=== PATIENT | female | born 1990 | race Two or more races ===

== ENCOUNTER 2021-11-08 12:17 | Outpatient (REF) | payer MEDICAID, SELFPAY ==
[2021-11-08 13:15] LABS: Alanine Aminotransferase 21 U/L (0-31); Albumin Level 4.5 g/dL (3.5-5.0); Alkaline Phosphatase 83 U/L (39-117); Aspartate Amino Transferase 18 U/L (5-31); Bilirubin Direct 0.2 mg/dL (0.0-0.5); Bilirubin Total 0.5 mg/dL (0.0-1.0); Total Protein 7.2 g/dL (6.5-8.0)
[2021-11-08 13:21] LABS: HCG Quantitative < 2 mIU/mL
[2021-11-10 01:21] LABS: Follicle Stimulating Hormone 6.3 mIU/mL; Lutenizing Hormone 2.7 mIU/mL
[2021-11-15 04:16] LABS: Estradiol Free 0.24 pg/mL; Estradiol, Ultrasensitive 12 pg/mL
== END 2021-11-08 12:18 | disposition home or self-care (01) ==
LOC: HO.LAB 12:17
PROVIDERS: PCP Student in an Organized Health Care Education/Training Program; Visit Provider Internal Medicine Endocrinology, Diabetes & Metabolism
DX: E22.1 Hyperprolactinemia (principal)
CPT/HCPCS: 36415; 80076; 82670; 82681; 83001; 83002; 84702

== ENCOUNTER 2022-03-25 15:50 | Outpatient (REF) | payer MEDICAID, SELFPAY ==
[2022-03-25 16:49] LABS: Alanine Aminotransferase 29 U/L (0-31); Albumin Level 4.6 g/dL (3.5-5.0); Alkaline Phosphatase 90 U/L (39-117); Aspartate Amino Transferase 22 U/L (5-31); Bilirubin Direct < 0.2 mg/dL (0.0-0.5); Bilirubin Total 0.3 mg/dL (0.0-1.0); Total Protein 7.4 g/dL (6.5-8.0)
[2022-03-27 07:23] LABS: Prolactin 94.8 ng/mL
== END 2022-03-25 15:51 | disposition home or self-care (01) ==
LOC: HO.LAB 15:50
PROVIDERS: PCP Student in an Organized Health Care Education/Training Program; Visit Provider Internal Medicine Endocrinology, Diabetes & Metabolism
DX: E22.1 Hyperprolactinemia (principal)
CPT/HCPCS: 36415; 80076; 84146

== ENCOUNTER → 2022-03-28 11:30 | Outpatient (BNVA) | payer MEDICAID, SELFPAY | PROVIDERS: PCP Student in an Organized Health Care Education/Training Program; Visit Provider Internal Medicine Endocrinology, Diabetes & Metabolism | DX: E22.1 Hyperprolactinemia (principal) | CPT/HCPCS: 99212 ==

== ENCOUNTER 2022-08-13 10:14 | Outpatient (REF) | payer MEDICAID, SELFPAY | END 2022-08-13 10:15 | disposition home or self-care (01) | LOC: HO.SH 10:14 | PROVIDERS: Visit Provider Family Medicine | DX: H93.12 Tinnitus, left ear (principal) | CPT/HCPCS: 92557; 92567 ==

== ENCOUNTER 2022-12-19 12:20 | Outpatient (REF) | payer MEDICAID, SELFPAY ==
[2022-12-19 14:39] LABS: Alanine Aminotransferase 13 U/L (0-31); Albumin Level 4.3 g/dL (3.5-5.0); Alkaline Phosphatase 75 U/L (39-117); Aspartate Amino Transferase 15 U/L (5-31); Bilirubin Direct 0.1 mg/dL (0.0-0.5); Bilirubin Total 0.4 mg/dL (0.0-1.0); Total Protein 7.2 g/dL (6.5-8.0)
[2022-12-20 12:32] LABS: Prolactin 57.4 ng/mL
== END 2022-12-19 12:21 | disposition home or self-care (01) ==
LOC: HO.LAB 12:20
PROVIDERS: PCP Student in an Organized Health Care Education/Training Program; Visit Provider Internal Medicine Endocrinology, Diabetes & Metabolism
DX: E22.1 Hyperprolactinemia (principal)
CPT/HCPCS: 36415; 80076; 84146

== ENCOUNTER 2023-08-11 16:06 | Outpatient (REF) | payer MEDICAID, SELFPAY ==
[2023-08-11 17:31] LABS: MANUAL DIFF FLAG NO
[2023-08-11 17:46] LABS: Basophils Percent Auto 0.5 % (0-2); Eosinophils Absolute Auto 0.1 X10*3/uL (0.0-0.4); Eosinophils Percent Auto 2.3 % (0-4); Hematocrit 29.3 % (37.0-47.0); Hemoglobin 9.6 g/dl (12.0-16.0); Imm Gran Abs Auto 0.02 X10*3/uL (0.00-0.03); Imm Gran Pct Auto 0.3 % (0.0-0.4); Lymphocytes Absolute Auto 2.3 X10*3/uL (1.2-4.9); Lymphocytes Percent Auto 38.2 % (20-40); Mean Corpuscular HGB Conc 32.8 g/dl (31.0-35.0); Mean Corpuscular Hemoglobin 26.8 pg (27.0-33.0); Mean Corpuscular Volume 81.8 fL (80.0-98.0); Mean Platelet Volume 10.9 fL (9.4-12.3); Monocytes Absolute Auto 0.3 X10*3/uL (0.1-1.2); Monocytes Percent Auto 5.5 % (2-11); Neutrophils Absolute Auto 3.2 x10*3/uL (2.0-8.3); Neutrophils Percent Auto 53.2 % (45-73); Platelet Count 281 X10*3/uL (160-400); Red Blood Count 3.58 X10*6/uL (4.20-5.50); Red Cell Distribution Width 14.7 % (11.0-16.0)
[2023-08-11 18:16] LABS: Iron 32 mcg/dL (30-160); Percent Iron Saturation 9 % (15-50); Total Iron Binding Capacity 351 mcg/dL (228-428); Unsaturated Iron Binding 319 ug/dL
[2023-08-11 18:18] LABS: Ferritin 5 ng/mL (10-122)
== END 2023-08-11 16:07 | disposition home or self-care (01) ==
LOC: HO.CHCLDS 16:06
PROVIDERS: Visit Provider Registered Nurse
DX: R42 Dizziness and giddiness (principal)
CPT/HCPCS: 36415; 82728; 83540; 85025

== ENCOUNTER 2024-05-23 16:26 | Outpatient (REF) | payer MEDICAID, SELFPAY ==
[2024-05-23 17:48] LABS: MANUAL DIFF FLAG NO
[2024-05-23 17:59] LABS: Basophils Absolute Auto 0.1 X10*3/uL (0.0-0.2); Basophils Percent Auto 0.6 % (0-2); Eosinophils Absolute Auto 0.2 X10*3/uL (0.0-0.4); Hematocrit 29.6 % (37.0-47.0); Hemoglobin 9.1 g/dl (12.0-16.0); Imm Gran Abs Auto 0.06 X10*3/uL (0.00-0.03); Imm Gran Pct Auto 0.7 % (0.0-0.4); Lymphocytes Absolute Auto 2.9 X10*3/uL (1.2-4.9); Mean Corpuscular HGB Conc 30.7 g/dl (31.0-35.0); Mean Corpuscular Hemoglobin 22.6 pg (27.0-33.0); Mean Corpuscular Volume 73.4 fL (80.0-98.0); Mean Platelet Volume 10.5 fL (9.4-12.3); Monocytes Absolute Auto 0.6 X10*3/uL (0.1-1.2); Monocytes Percent Auto 6.7 % (2-11); Neutrophils Absolute Auto 5.3 x10*3/uL (2.0-8.3); Platelet Count 362 X10*3/uL (160-400); Red Blood Count 4.03 X10*6/uL (4.20-5.50); Red Cell Distribution Width 17.2 % (11.0-16.0); White Blood Count 9.1 X10*3/uL (4.8-10.8)
[2024-05-23 18:21] LABS: Iron 20 mcg/dL (30-160); Percent Iron Saturation 5 % (15-50); Total Iron Binding Capacity 379 mcg/dL (228-428); Unsaturated Iron Binding 359 ug/dL
--- OUTSIDE RECORDS SUMMARY | 2024-05-23 19:52 | XMS_ITS | Clinical Summary ---
Author Organization [employer] Address [address] [facility] 7[address] [place] [address] Care Team Providers Care Paleontology Teacher Name Role Phone Harper Chaudhari MD Primary Care Provider [phone] Allergies No known active allergies Medications cyclobenzaprine (Flexeril) 5 MG tablet Take 1 tablet by mouth. 1 Active multivitamin with minerals (Cerovite) 18-400 mg-mcg tablet tablet Take by mouth. 0 Active triamcinolone (Kenalog) 0.1 % creamIndications:P aronychia of finger of right hand Apply topically if needed in the morning and at bedtime (pain and swelling). 30 g 2 2 Active SUMAtriptan (Imitrex) 100 MG tabletIndications: Acute nonintractable headache, unspecified headache type Take 1 tablet at onset of headache. Repeat in 2 hours if headache still present. Do not take more than 2 tablets daily 9 tablet 3 Active meclizine (Antivert) 25 MG tablet 1 tab po BID 60 tablet 3 3 Active Dextromethorphan-g uaiFENesin (Mucinex DM) 30-600 MG tablet sustained-release 12 hour Use 1 tab TID 28 tablet 4 Active ferrous gluconate (Fergon) 324 (38 Fe) MG tablet TAKE 1 TABLET BY MOUTH EVERY THURSDAY, THURSDAY AND THURSDAY. TAKE WITH A FULL GLASS OF WATER OR VITAMIN C CONTAINING JUICE AND IDEALLY 1 HOUR BEFORE A MEAL OR 2 HOURS AFTER A MEAL 36 tablet 4 Active sodium chloride (Levy) 0.65 % nasal sprayIndications:N ángel congestion Administer 1 spray into each nostril if needed for congestion. 15 mL 1 5 026 Active Active Problems Problem Noted Date Diagnosed Date Pulsatile tinnitus of left ear 05/23/2024 Acute nonintractable headache 03/16/2023 Assessment & Plan (03/16/2023 4:45 PM EST): -possibly migraine -Imitrex rx sent to pharmacy -take ibuprofen with imitrex -monitor for worsening symptoms and call the clinic if no improvement -f/u 2 weeks Tinnitus aurium, left 05/19/2022 Assessment & Plan (05/19/2022 4:24 PM EST): Left ear tinnitus, will send iron studies, reviewed recent TSH. Will send to audiology & ENT, recommended f/u with PCP Impacted cerumen of right ear 05/19/2022 Assessment & Plan (03/16/2023 4:46 PM EST): -severely impacted; TM not visible -previously tried debrox gtts not successful -lavage completed today after which TM was visible Assessment & Plan (05/19/2022 4:27 PM EST): Will send debrox gtt and will setup for nursing visit for lavage. Disorder of pelvis 05/07/2022 Lymphadenopathy, cervical 05/07/2022 Assessment & Plan (05/07/2022 11:00 AM EST): Likely LN, recent viral illness, but will send for US and send labs. Will followup. No B symptoms Change in facial mole 05/07/2022 Assessment & Plan (05/07/2022 10:58 AM EST): Normal appearance upon examination but will refer to dermatology for further examination. Paronychia of finger of right hand 04/03/2022 Assessment & Plan (04/03/2022 10:52 AM EST): Avoid washing dishes without gloves. Topical steroid cream application bid and short course of oral steroids also given, avoid manicure for a while. Wart of hand 04/03/2022 Overview (04/03/2022): Liquid nitrogen applied. No complications.[place]erral [place] [facility] [place] it is interfering with her job. Encounters Date Type Department Care Team Description 05/23/2024 3:40 PM EST Office Visit [facility] [address] [place] [address] Carly Capone MD Nasal congestion (Primary Dx); Iron deficiency anemia due to chronic blood loss; Pulsatile tinnitus of left ear 05/23/2024 Travel 05/23/2024 Telephone [facility] [address] [place] [address] Harper Chaudhari MD Nurse Triage 05/10/2024 Telephone [facility] [address] [place], [place] [phone] Harper Chaudhari MD Nurse Triage 03/11/2024 Refill [facility] [address] [place] [address] Harper Chaudhari MD from Last 3 Months Social History Tobacco Use Types Packs/Day Years Used Date Smoking Tobacco: Never Passive Smoke Exposure: Never Smokeless Tobacco: Never Tobacco Cessation:Counseling Given: Not Answered Alcohol Use Standard Drinks/Week Comments Never 0 (1 standard drink = 0.6 oz pur e alcohol) Depression Answer Date Recorded Patient Health Questionnaire-9 Score 2 02/19/2024 Patient Health Questionnaire-9 Score 2 02/19/2024 Last PHQ-9: Questionnaire Data Not on file 1 Housing Stability Answer Date Recorded What is your housing situation today? I have bhupinder marley 02/11/[address] you li ve. Do you have problems with any of the following? None of the above 02/11/2023 Food Insecurity Answer Date Recorded Within the past 12 months, y ou worried that your food would run out before you got money to buy more: Never True 02/11/2023 Within the past 12 months,th e food you bought just didn't last and you didn't have enough money to get more: Never True Transportation Answer Date Recorded In the past 12 months, has l ack of transportation kept you from medical appts, meetings, work or from getting things needed for daily living? No 02/11/2023 Utilities Answer Date Recorded In the past 12 months, has t he electric, gas, oil or water company threatened to shut off services in your home? No 02/11/2023 Depression Answer Date Recorded Patient Health Questionnaire-2 Score 1 02/19/2024 Comments No Sex and Gender Information Value Date Recorded Sex Assigned at Female 02/24/2022 10:19 AM EDT Legal Sex Female 10:19 AM EDT Gender Identity Female 02/24/2022 10:19 AM EDT Sexual Orientation Straight 02/24/2022 10 :19 AM EDT Last Filed Vital Signs Vital Sign Reading Time Taken Comments Blood Pressure 108/75 05/23/2024 3:49 PM EST Pulse 85 05/23/2024 3:49 PM EST Temperature 36.5 ??C (97.7 ??F) 05/23/2024 3:49 PM ES T Respiratory Rate 20 05/23/2024 3:49 PM EST Oxygen Saturation 100% 05/23/2024 3:49 PM EST Inhaled Oxygen Concentration - - Weight 55.8 kg (123 lb) 05/23/2024 3:49 PM EST Height 148 cm (4' 10.25 ) 05/23/2024 3:49 PM EST Body Mass Index 25.49 05/23/2024 3:49 PM EST Plan of Treatment Health Maintenance Due Date Last Done Comments Family Planning (PISQ) 2005 DTaP/Tdap/Td Vaccines (1 - Tdap) 2009 Hepatitis B Vaccines (1 of 3 - 19+ 3-dose series) 2009 Pap Smear 2011 Cervical Cancer Screening 01/12/2020 HPV/Cotest 01/12/2020 SDOH Screening 09/26/2023 09/25/2022 COVID-19 Vaccine (1 - 2023-2 5 season) 2023 Influenza Vaccine (#1) 2023 Tobacco Screening 11/02/2024 11/03/2023 Alcohol/Substance Use Screening 02/18/2025 02/19/2024 Depression Screening 02/18/2025 02/19/2024, 02/19/2024 Zoster Vaccines (1 of 2) 01/12/2040 RSV Patients and Patients Aged 60 years or older (1 - 1-dose 75+ series) 2065 HIV Screening Completed 06/03/2019 Hepatitis C Screening Completed 06/03/2019 HIB Vaccines Aged Out No longer eligi ble based on patient's age to complete this topic HPV Vaccines Aged Out No longer eligi ble based on patient's age to complete this topic Hepatitis A Vaccines Aged Out No long er eligible based on patient's age to complete this topic IPV Vaccines Aged Out No longer eligi ble based on patient's age to complete this topic Meningococcal Vaccine Aged Out No mi cathy eligible based on patient's age to complete this topic Pneumococcal Vaccine: Pediatrics (0 to 5 Years) and At-Risk Patients (6 to 64 Years) Aged Out No longer eligible b ased on patient's age to complete this topic RSV under 20 months Aged Out No longe r eligible based on patient's age to complete this topic Rotavirus Vaccines Aged Out No longer eligible based on patient's age to complete this topic Procedures Procedure Name Priority Date/Time Associated Diagnosis Comments CBC WITH AUTO DIFFERENTIAL Routine 05/23/2024 4:28 PM EST Other iron deficiency anemia IRON AND TOTAL IRON BINDING CAPACITY Routine 05/23/2024 4:25 PM EST Other iron deficiency anemia ZZZ HISTORICAL HEPATITIS C ANTIBODY RFLX Routine 06/03/2019 10:01 AM EST ZZZ HISTORICAL HIV AB/AG Routine 06/03/2019 10:01 AM EST from Last 3 Months or Most Recently Relevant to Health Maintenance Results * (ABNORMAL) CBC auto differential (05/23/2024 4:28 PM EST) White Blood Count 9.1 4.8 - 10.8 X10*3/uL [facility] Red Blood Count 4.03(L) 4.20 - 5.50 X10*6/uL [facility] Hemoglobin 9.1(L) 12.0 - 16.0 g/dl [facility] Hematocrit 29.6(L) 37.0 - 47.0 % [facility] Mean Corpuscular Volume 73.4(L) 80.0 - 98.0 fL [facility] Mean Corpuscular Hemoglobin 22.6(L) 27.0 - 33.0 pg [facility] Mean Corpuscular HGB Conc 30.7(L) 31.0 - 35.0 g/dl [facility] Red Cell Distribution Width 17.2(H) 11.0 - 16.0 % [facility] Platelet Count 362 160 - 400 X10*3/uL [facility] Mean Platelet Volume 10.5 9.4 - 12.3 fL [facility] Neutrophils Percent Auto 58.0 45 - 73 % [facility] Imm Gran Pct Auto 0.7(H) 0.0 - 0.4 % [facility] Lymphocytes Percent Auto 32.0 20 - 40 % [facility] Monocytes Percent Auto 6.7 2 - 11 % [facility] Eosinophils Percent Auto 2.0 0 - 4 % [facility] Basophils Percent Auto 0.6 0 - 2 % [facility] NRBC Pct Auto 0.0 0.0 - 0.2 /100WBC [facility] Neutrophils Absolute Auto 5.3 2.0 - 8.3 x10*3/uL [facility] Imm Gran Abs Auto 0.06(H) 0.00 - 0.03 X10*3/uL [facility] Lymphocytes Absolute Auto 2.9 1.2 - 4.9 X10*3/uL [facility] Monocytes Absolute Auto 0.6 0.1 - 1.2 X10*3/uL [facility] Eosinophils Absolute Auto 0.2 0.0 - 0.4 X10*3/uL [facility] Basophils Absolute Auto 0.1 0.0 - 0.2 X10*3/uL [facility] NRBC Abs Auto 0.000 0.0 - 0.012 X10*3/uL [facility] Blood Venous blood specimen / Unknown 05/23/2024 4:28 PM EST 05/23/2024 5:46 PM EST us Carlos Denny MD LAB BLOOD ORDERABL ES Final Result Performing Organization Address [facility] de Phone Number [facility] [address] [place] [address] [phone] * (ABNORMAL) Iron And Total Iron Binding Capacity (05/23/2024 4:25 PM EST) Iron 20(L) 30 - 160 mcg/dL [facility] Total Iron Binding Capacity 379 228 - 428 mcg/dL [facility] Percent Iron Saturation 5(L) 15 - 50 % [facility] Unsaturated Iron Binding 359 ug/dL [facility] Blood Venous blood specimen / Unknown 05/23/2024 4:25 PM EST 05/23/2024 5:46 PM EST Carlos Denny MD LAB BLOOD ORDERABL ES Final Result Performing Organization Address [facility] Phone Number [facility] [address] [place] [address] [phone] * HEPATITIS C ANTIBODY RFLX (06/03/2019 10:01 AM EST) [facility] HEPATITIS C ANTIBODY NONREACTIVE NONREACTIVE [facility] Comment: Antibodies to HCV not detected; does not exclude early acute HCV infection. 06/03/2019 10:0 1 AM EST Historical Provider HISTORICAL/NON ORDERABLE LABS Final Result Performing Organization Address [facility] de Phone Number [facility] [address] * HIV AB/AG (06/03/2019 10:01 AM EST) HIV AG/AB NONREACTIVE [facility] Comment: HIV-1 p24 Ag and/or HIV-1/HIV-2 Ab not detected. ?? A test result that is nonreactive does not exclude the possibility of exposure to or infection with HIV-1 and/or HIV-2. Nonreactive results in this assay for individuals with prior exposure to HIV-1 and/or HIV-2 may be due to antigen and antibody levels that are below the limit of detection of this assay. ?? [facility] [employer] [facility] HIV Ag/Ab Combo assay result and supplemental assay results should be interpreted in conjunction with the patient's clinical presentation, history and other laboratory results. ??If the results are inconsistent with clinical evidence, additional testing is suggested to confirm the result. 06/03/2019 10:0 1 AM EST us Historical Provider HISTORICAL/NON ORDERABLE LABS Final Result [facility] [address] from Last 3 Months or Most Recently Relevant to Health Maintenance Insurance [facility] C3 Care Teams Paleontology Teacher Relationship Specialty Start Date End Date Harper Chaudahri MD [address] [place] [id number] PCP - General Family Medicine 01/31/20
--- OUTSIDE RECORDS SUMMARY | 2024-05-23 19:52 | XMS_ITS | Encounter Summary ---
Author Organization [employer] Address [address] [facility] [address] [place] [address] Care Team Providers Care Customer Engineer Name Role Phone Harper Chaudhari MD Primary Care Provider [phone] Encounter Details Date Type Department Care Team (Latest Contact Info) Description 11/22/2020 Abstract [facility] CONVERSIONS Dental, Provider, DDS Social History Tobacco Use Types Packs/Day Years Used Date Smoking Tobacco: Never Assessed Comments Unknown Sex and Gender Information Value Date Recorded Sex Assigned at Female 02/24/2022 10:19 AM EDT Legal Sex Female 10:19 AM EDT Gender Identity Female 02/24/2022 10:19 AM EDT Sexual Orientation Straight 02/24/2022 10 :19 AM EDT documented as of this encounter Plan of Treatment Not on file documented as of this encounter Visit Diagnoses Not on filedocumented in this encounter Care Teams Customer Engineer Relationship Specialty Start Date End Date Harper Chaudhari MD [address] [place] [phone] PCP - General Family Medicine 01/31/20 documented as of this encounter
--- OUTSIDE RECORDS SUMMARY | 2024-05-23 19:52 | XMS_ITS | Data Portability ---
Author Organization [employer] [facility] [id number] Address [address] [place] [address] Assessment No assessment recorded. Plan of Treatment Reminders Order Date Submit Date Provider Last Modified By Organization Details Last Modified Time Details Appointments None record ed. Lab None record ed. Referral None record ed. Procedures None record ed. Surgeries None record ed. Imaging None record ed. Medication Orders None record ed. Patient TargetsNo targets recorded. Patient InstructionsNo instructions recorded. Reason for Referral None Reported. Medical Equipment None Reported. Medications Name Sig Start Date Stop Date Status Note LastModified by Organization Details LastModified Time meclizine 25 mg tablet TAKE 1 TABLET BY MOUTH TWICE A DAY active Not Available Not Available No t Available benzonatate 100 mg capsule TAKE 1 CAPSULE BY MOUTH 3 TIMES PER DAY (COUGH) FOR 10 DAYS active Not Available Not Available No t Available cephalexin 500 mg capsule TAKE 1 CAPSULE BY MOUTH EVERY 8 HOURS FOR 7 DAYS active Not Available Not Available No t Available oseltamivir 75 mg capsule TAKE 1 CAPSULE BY MOUTH TWICE A DAY FOR 5 DAYS active Not Available Not Available No t Available cabergoline 0.5 mg tablet TAKE 1 TABLET BY MOUTH EVERY 7 DAYS X30 DAYS active Not Available Not Available No t Available nitrofurantoin monohydrate/mac rocrystals 100 mg capsule TAKE 1 CAPSULE BY MOUTH 2 TIMES DAILY FOR 5 DAYS. active Not Available Not Available No t Available ferrous gluconate 324 mg (38 mg iron) tablet TAKE 1 TABLET (324 MG) BY MOUTH WITH BREAKFAS T. active Not Available Not Available No t Available Vitals None Recorded Social History None recorded. Functional Status None recorded. Mental Status None recorded. Family History Nothing Reported. Medical History No medical history recorded. Gynecological HistoryNo gynecological history recorded. Obstetrics History GPAL:G 0 P 0 0 0 0 Past Encounters Encounter ID Performer Location Encounter Start Date Encounter Closed Date Diagnosis/Indication Diagnosis SNOMED-CT Code Diagnosis ICD10 Code Diagnosis Note [id number] [facility] [place] [address] 02/23/2019 12:11:53 02/23/2019 12:42:15 Health Concerns Section Related Observation LastModified by Organization Detai ls LastModified Time None Recorded Concern Status LastModified by Organization Details LastModified Time None Recorded Advance Directives Directive None Recorded Payers None recorded. OBGyn Episode No OBEpisode recorded.
--- OUTSIDE RECORDS SUMMARY | 2024-05-23 19:52 | XMS_ITS | Encounter Summary ---
Author Organization [employer] Address [address] [facility] 7[address] [place] [address] Care Team Providers Care Plant Machinist Name Role Phone Harper Chaudhari MD Primary Care Provider [phone] Reason for Visit * Reason Onset Date Comments Nurse Triage 05/10/2024 Encounter Details Date Type Department Care Team ([facility] st Contact Info) Description 05/10/2024 Telephone [facility] [address] [place], [place] [phone] Harper Chaudhari MD [address] [place] [address] Nurse Triage Social History Tobacco Use Types Packs/Day Years Used Date Smoking Tobacco: Never Passive Smoke Exposure: Never Smokeless Tobacco: Never Alcohol Use Standard Drinks/Week Comments Never 0 [...] AM EDT documented as of this encounter Miscellaneous Notes * Telephone Encounter - Nina Pate RN - 05/10/2024 10:01 AM EST called pt to triage, spoke to pt. pt states 2 days duration of congestion, dry cough, sore throat, fatigue, headache. pt denies known high fevers, known exposures, rash, sob, vomiting, or other associated symptoms. pt states will go to near her for the convenience as she has to work. advised home care: rest, fluids, steam, humidifier, warm saltwater gargles, lozenges, OTC pain or fever reliever as needed and call back if worsening or new concerns. insurance verified. pt understands and agrees with plan. Protocol Used: Cough (Adult) Protocol-Based Disposition: See in Office or Video Visit Today or Tomorrow Video visit offer not recorded Positive Triage Questions: * Continuous (nonstop) coughing interferes with work or school and no improvement using cough treatment per Care Advice * Patient wants to be seen * All higher-acuity triage questions were negative Care Advice Discussed: * Reassurance and Education - Cough * Cough Medicines * Coughing Spells * Prevent Dehydration * Avoid Tobacco Smoke * Humidifier * Fever Medicines * Reasons To Call Back - Difficulty breathing - Cough lasts more than 3 weeks - Fever lasts more than 3 days - You become worse * Telephone Encounter - Jennifer Daniels - 05/10/2024 9:09 AM EST Symptom: Cough, sore throat and nose congestion Outcome: Schedule an appointment to be seen within 24 hours Reason: Caller denied all higher acuity questions The caller accepted this outcome. documented in this encounter Plan of Treatment Not on file documented as of this encounter Visit Diagnoses Not on filedocumented in this encounter Additional Health Concerns Assessment Noted Time PHQ-9 Depression Total Score: 2 02/19/20 24 9:18 AM EDT documented as of this encounter Care Teams Plant Machinist Relationship Specialty Start Date End Date Harper Chaudhari MD [address] [place] [phone] PCP - General Family Medicine 01/31/20 documented as of this encounter
--- OUTSIDE RECORDS SUMMARY | 2024-05-23 19:52 | XMS_ITS | Encounter Summary ---
Author Organization [employer] Address [address] [facility] [address] [place] [address] Care Team Providers Care Food Production Supervisor Name Role Phone Harper Chaudhari MD Primary Care Provider [phone] Reason for Visit * Reason Onset Date Comments Medication Question 04/30/2023 Encounter Details Date Type Department Care Team ([facility] st Contact Info) Description 04/30/2023 Telephone [facility] [address] [place], [place] [phone] Harper Chaudhari MD [address] [place] [address] Medication Question Social History Tobacco Use Types Packs/Day Years Used Date Smoking Tobacco: Never Passive Smoke Exposure: Never Smokeless Tobacco: Never Alcohol Use Standard Drinks/Week Comments Never 0 (1 standard drink = 0.6 oz pur e alcohol) Depression Answer Date Recorded Patient Health Questionnaire-9 Score 0 09/25/2022 Housing Stability Answer Date Recorded What is [...] Answer Date Recorded Patient Health Questionnaire-2 Score 0 09/25/2022 Comments No Sex and Gender Information Value Date Recorded Sex Assigned at Female 02/24/2022 10:19 AM EDT Legal Sex Female 10:19 AM EDT Gender Identity Female 02/24/2022 10:19 AM EDT Sexual Orientation Straight 02/24/2022 10 :19 AM EDT documented as of this encounter Miscellaneous Notes * Telephone Encounter - Luma Song - 04/30/2023 4:23 PM EST Tc from pt requesting medication Dextromethorphan-guaiFENesin (Mucinex DM) 30- 600 MG tablet sustained-release 12 hour to be re sent. States pharmacy never received script. documented in this encounter Plan of Treatment Not on file documented as of this encounter Visit Diagnoses Not on filedocumented in this encounter Additional Health Concerns Assessment Noted Time PHQ-9 Depression Total Score: 0 09/26/19 23 10:58 AM EDT documented as of this encounter Care Teams Food Production Supervisor Relationship Specialty Start Date End Date Harper Chaudhari MD [address] [place] [phone] PCP - General Family Medicine 01/31/20 documented as of this encounter
--- OUTSIDE RECORDS SUMMARY | 2024-05-23 19:52 | XMS_ITS | Encounter Summary ---
Author Organization [employer] Address [address] [facility] [address] [place] [address] Care Team Providers Care Fur Sorter Name Role Phone Harper Chaudhari MD Primary Care Provider [phone] Reason for Visit * Reason Onset Date Comments Nurse Triage 04/30/2023 Encounter Details Date Type Department Care Team ([facility] st Contact Info) Description 04/30/2023 Telephone [facility] [address] [place], [place] [phone] Harper Chaudhari MD [address] [place] [address] Nurse Triage Social History Tobacco Use Types [...] the past 12 months, has t he [employer], oil or water [employer] threatened to shut off services in your [...] encounter Miscellaneous Notes * Telephone Encounter - Harper Chaudhari MD - 05/01/2023 9:28 AM EST Sent again * Telephone Encounter - Lashae Ruiz RN - 04/30/2023 4:54 PM EST Call to [facility], not a triage as pt already seen today. Pt states calling regarding rx for Mucinex not received by [facility]. Per Epic rx confirmed as received on 04/30/23 at 9:22am. Call to [facility]. Pharmacists states that Rx not received. Requesting new rx order be sent. End of day. Will need to forwardto provider to resend in the morning. Pt was advised that per pharmacist is available OTC. Pt wantsRx sent. Pt advised will send to PCP and to follow up in the morning,. Protocol Used: Medication Question Call (Adult) Protocol-Based Disposition: Discuss with PCP and Callback by Nurse Video visit offer not recorded Positive Triage Question: * Prescription not at pharmacy and was prescribed by PCP recently (Exception: triager has access toEMR and prescription is recorded there. Go to Home Care and confirm for pharmacy.) * All higher-acuity triage questions were negative * Telephone Encounter - Michael Valdovinos - 04/30/2023 4:40 PM EST Symptom: Cough Outcome: Transfer to a nurse or provider NOW! Reason: Struggling for each breath (severe trouble breathing) documented in this encounter Plan of Treatment Not on file documented as of this encounter Visit Diagnoses Not on filedocumented in this encounter Additional Health Concerns Assessment Noted Time PHQ-9 Depression Total Score: 0 09/26/19 23 10:58 AM EDT documented as of this encounter Care Teams Fur Sorter Relationship Specialty Start Date End Date Harper Chaudhari MD [address] [place] [id number] PCP - General Family Medicine 01/31/20 documented as of this encounter
--- OUTSIDE RECORDS SUMMARY | 2024-05-23 19:52 | XMS_ITS | Encounter Summary ---
Author Organization [employer] Address 75 [facility] 7t [place] [address] Care Team Providers Care Tar Pot Worker Name Role Phone Harper Chaudhari MD Primary Care Provider [phone] Reason for Visit * Reason Onset Date Comments Nurse Triage 05/23/2024 Encounter Details Date Type Department Care Team ([facility] st Contact Info) Description 05/23/2024 Telephone [facility] MEDICINE [address] [place] [address] Harper Chaudhari MD [address] [place] [address] Nurse Triage Social History Tobacco Use Types [...] encounter Miscellaneous Notes * Telephone Encounter - Talita Bo RN - 05/23/2024 9:47 AM EST Triage call Pt reports cough and nasal/chest congestion for about 3 weeks now. Pt reports cough goes away and comes back along with a sore throat. Neg for fever but, has had chills at times. Pt reports nasal drainage is greenish to clear. Pt is also concerned about low HGB due to abnormal vag bleeding and is noting some tinnitus/rapid heart beat at times. Pt was seen in urgent care 05/10/24 and was neg for all testing, neg for Covid. ASK apt in [facility] today at 340pm. Pt is advised to increase liquids to 64oz daily especially warm drinks . Pt agrees with home care advice and disposition. Pt insurance is verified as active prior to booking. Protocol Used: Cough (Adult) Protocol-Based Disposition: See in Office or Video Visit within 3 Days Video visit not offered Positive Triage Questions: * Cough has been present for > 3 weeks * Nasal discharge present > 10 days * All higher-acuity triage questions were negative Care Advice Discussed: * Reassurance and Education - Cough * Prevent Dehydration * Humidifier * Reasons To Call Back - Difficulty breathing - Cough lasts more than 3 weeks - Fever lasts more than 3 days - You become worse * Telephone Encounter - Lisa Arslan - 05/23/2024 8:43 AM EST Symptoms: Chest Congestion, Cough Outcome: Schedule an appointment to be seen within 24 hours Reason: Caller denied all higher acuity questions The caller accepted this outcome. - Pt states she also been in her period for 16 days - documented in this encounter Plan of Treatment Not on file documented as of this encounter Visit Diagnoses Not on filedocumented in this encounter Additional Health Concerns Assessment Noted Time PHQ-9 Depression Total Score: 2 02/19/20 24 9:18 AM EDT documented as of this encounter Care Teams Tar Pot Worker Relationship Specialty Start Date End Date Harper Chaudhari MD [address] [place] [address] PCP - General Family Medicine 01/31/20 documented as of this encounter
--- OUTSIDE RECORDS SUMMARY | 2024-05-23 19:52 | XMS_ITS | Encounter Summary ---
Author Organization [employer] Address 75 [facility] 7t [place] [address] Care Team Providers Care Physician Allergist Immunologist Name Role Phone Harepr Chaudhari MD Primary Care Provider [phone] Reason for Visit * Reason Onset Date Comments Med Refill 02/11/2024 Encounter Details Date Type Department Care Team ([facility] st Contact Info) Description 02/11/2024 Telephone [facility] CHC MED & PEDS [address] [place], [place] [phone] Harper Chaudhari MD [address] [place] [address] Med Refill Social History Tobacco Use Types Packs/Day Years [...] encounter Miscellaneous Notes * Telephone Encounter - Jia Morrell LPN - 02/11/2024 3:01 PM EDT Therapy completed. * Telephone Encounter - Ruth Mart - 02/11/2024 2:56 PM EDT TC from pt requesting medication refill. Medications needing refill : terbinafine (LamISIL) 250 MG tablet To be sent to: [facility]/pharmacy #[id number] [place] [address] - [address] [place] [address] documented in this encounter Plan of Treatment Not on file documented as of this encounter Visit Diagnoses Not on filedocumented in this encounter Additional Health Concerns Assessment Noted Time PHQ-9 Depression Total Score: 0 09/26/19 23 10:58 AM EDT documented as of this encounter Care Teams Physician Allergist Immunologist Relationship Specialty Start Date End Date Harper Chaudhari MD [address] [place] [address] PCP - General Family Medicine 01/31/20 documented as of this encounter
--- OUTSIDE RECORDS SUMMARY | 2024-05-23 19:52 | XMS_ITS | Encounter Summary ---
Author Organization [employer] Address 75 [facility] 7t [place] [address] Care Team Providers Care Human Resources Assistant Manager Name Role Phone Harper Chaudhari MD Primary Care Provider [phone] Reason for Visit * Reason Onset Date Comments Results 08/03/2023 Encounter Details Date Type Department Care Team ([facility] st Contact Info) Description 08/03/2023 Telephone [facility] MEDICINE [address] [place] [address] Harper Chaudhari MD [address] [place] [address] Results Social History Tobacco Use Types Packs/Day Years Used Date Smoking Tobacco: Never Passive Smoke Exposure: Never Smokeless Tobacco: Never Alcohol Use Standard Drinks/Week Comments Never 0 (1 standard drink = 0.6 oz pur e alcohol) Depression Answer Date Recorded Patient Health Questionnaire-9 Score 0 09/25/2022 Housing Stability Answer Date Recorded What is your housing situation today? I have bhupindernikolai marley 02/11/[address] you [...] encounter Miscellaneous Notes * Telephone Encounter - Delores Gaitan RN - 08/05/2023 11:07 AM EDT Placed call to [facility] regarding message below. Pt had imaging done on 07/23 at [facility]. Informed that ENT Dr Alva ordered imaging. Placed call to pt and informed of need to contact their office. * Telephone Encounter - Michael Valdovinos - 08/03/2023 10:41 AM EDT TC from pt requesting call back regarding Results. Type of results: Imaging Date when done: 07/23 Facility: [facility] Radiology Pt is also requesting clarification on text message received stating your healthcare has ordered an imaging for you Please contact pt at [phone]. documented in this encounter Plan of Treatment Not on file documented as of this encounter Visit Diagnoses Not on filedocumented in this encounter Additional Health Concerns Assessment Noted Time PHQ-9 Depression Total Score: 0 09/26/19 23 10:58 AM EDT documented as of this encounter Care Teams Human Resources Assistant Manager Relationship Specialty Start Date End Date Harper Chaudhari MD [address] [place] [address] PCP - General Family Medicine 01/31/20 documented as of this encounter
--- OUTSIDE RECORDS SUMMARY | 2024-05-23 19:52 | XMS_ITS | Encounter Summary ---
Author Organization [employer] Address [address] [facility] [address] 7t [place] [address] Care Team Providers Care Voice Writing Reporter Name Role Phone Harper Chaudhari MD Primary Care Provider [phone] Encounter Details Date Type Department Care Team (Late st Contact Info) Description 09/08/2023 Orders Only [facility] CHC MED & PEDS [address] [place], [place] [phone] ProviderDeanna MD Social History Tobacco Use Types Packs/Day Years [...] on file documented as of this encounter Procedures Procedure Name Priority Date/Time Associated Diagnosis Comments SURGICAL PATHOLOGY Routine 08/11/2023 10:07 AM EDT documented in this encounter Results * Surgical Pathology (08/11/2023 10:07 AM EDT) us Historical Provider LAB PATHOLOGY ORDERABLES Final Result documented in this encounter Visit Diagnoses Not on filedocumented in this encounter Additional Health Concerns Assessment Noted Time PHQ-9 Depression Total Score: 0 09/26/19 23 10:58 AM EDT documented as of this encounter Care Teams Voice Writing Reporter Relationship Specialty Start Date End Date Harper Chaudhari MD [address] [place] [id number] PCP - General Family Medicine 01/31/20 documented as of this encounter
--- OUTSIDE RECORDS SUMMARY | 2024-05-23 19:52 | XMS_ITS | Encounter Summary ---
Author Organization [employer] Address [address] [facility] [address] 7[address] [place] [address] Care Team Providers Care Marine Specialist Name Role Phone Harper Chaudhari MD Primary Care Provider [phone] Encounter Details Date Type Department Care Team (Late st Contact Info) Description 05/23/2024 3:40 PM EST Office Visit [facility] CHC MED & PEDS [address] [place], [place] [phone] Carly Capone MD [address] [place] [address] Nasal congestion (Primary Dx); Iron deficiency anemia due to chronic blood loss; Pulsatile tinnitus of left ear Social History Tobacco Use Types Packs/Day Years [...] your housing situation today? I have bhupinder sing 02/11/[address] you li [...] AM EDT documented as of this encounter Last Filed Vital Signs Vital Sign Reading [...] Mass Index 25.49 05/23/2024 3:49 PM EST documented in this encounter Progress Notes * Carly Capone MD - 05/23/2024 3:40 PM EST Subjective Patient ID: Grace Lan is a 34 y.o. female who presents for ongoing nasal congestion and cough. HPI Grace is a 34 yo woman with chronic blood loss anemia who is here with 2 weeks of URI symptoms. Started with nasal congestion and body aches, then started having a cough. Seen at an urgent care whereshe tested negative for COVID and flu. She started to get better but then about 3 days ago, developed a sore throat and worsened nasal congestion and dry cough. Associated with subjective fever. Tried sinus rinse for the nasal congestion but it gave her vertigo. Of note, she started her menstrual period on 05/07/24 and she bled for about 8-9 days, which is typical. However, 4 days later, she started bleeding again that is much more liquidy than she is used to. Review of Systems Constitutional: Positive for fever. Negative for activity change and chills. HENT: Positive for congestion and tinnitus (pulsatile, left ear, for about 3 years). Negative for ear pain and hearing loss. Eyes: Negative for itching. Respiratory: Positive for cough. Negative for shortness of breath. Cardiovascular: Positive for palpitations. Negative for chest pain. Genitourinary: Positive for menstrual problem and vaginal bleeding (Excessive). Neurological: Positive for dizziness, numbness (left distal fingertips) and headaches. Negative forsyncope. Objective BP 108/75 (BP Location: Left arm, Patient Position: Sitting, BP Cuff Size: Adult) Pulse 85 Temp97.7 ??F (36.5 ??C) (Oral) Resp 20 Ht 4' 10.25 (1.48 m) Wt 123 lb (55.8 kg) SpO2 100% BMI 25.49 kg/m?? Physical Exam Constitutional: Appearance: She is normal weight. She is not ill-appearing. HENT: Head: Normocephalic and atraumatic. Right Ear: Tympanic membrane, ear canal and external ear normal. Left Ear: Tympanic membrane, ear canal and external ear normal. Nose: Congestion present. No rhinorrhea. Mouth/Throat: Mouth: Mucous membranes are moist. Pharynx: No oropharyngeal exudate or posterior oropharyngeal erythema. Eyes: General: Right eye: No discharge. Left eye: No discharge. Extraocular Movements: Extraocular movements intact. Conjunctiva/sclera: Conjunctivae normal. Pupils: Pupils are equal, round, and reactive to light. Comments: Infraorbital shiners Cardiovascular: Rate and Rhythm: Normal rate and regular rhythm. Pulses: Normal pulses. Heart sounds: Normal heart sounds. Pulmonary: Effort: Pulmonary effort is normal. Breath sounds: Normal breath sounds. No wheezing. Lymphadenopathy: Cervical: Cervical adenopathy (non-tender mobile right posterior cervical lymph node) present. Skin: General: Skin is warm and dry. Capillary Refill: Capillary refill takes less than 2 seconds. Neurological: General: No focal deficit present. Mental Status: She is alert. Psychiatric: Mood and Affect: Mood normal. Behavior: Behavior normal. Assessment/Plan Diagnoses and all orders for this visit: Nasal congestion: Viral tests negative today. No history of allergies but does have allergic shiners. Will start with [place] saline nasal spray and give her some time to improve. If not, wouldconsider antihistamines. - POCT Rapid Covid-19 BinaxNOW - POCT Rapid Influenza A OSOM - POCT Rapid Influenza B OSOM - sodium chloride ([place]) 0.65 % nasal spray; Administer 1 spray into each nostril if needed for congestion. Iron deficiency anemia due to chronic blood loss: Hgb in 08/18 was 9.6 with very low ferritin of 5. Has ongoing vaginal bleeding which her drilling plant operator thinks might be due to an new IUD. The drilling plant operator is aware of the current bleeding and I recommended Grace have a CBC and iron studies that had been previously ordered to see she is at now. Recommended she take iron three times weekly with small glass of OJ. Pulsatile tinnitus of left ear: She reports significant work-up of this problem but I do not see any in the chart. documented in this encounter Plan of Treatment Scheduled Orders Name Type Priority Associated Diagnoses Orde r Schedule POCT Rapid Covid-19 BinaxNOW Point of Care Testing Routine Nasal congestion Ordered: 05/23/2024 POCT Rapid Influenza A OSOM Point of Care Testing Routine Nasal congestion Ordered: 05/23/2024 POCT Rapid Influenza B OSOM Point of Care Testing Routine Nasal congestion Ordered: 05/23/2024 documented as of this encounter Visit Diagnoses Diagnosis Nasal congestion- Primary Other diseases of nasal cavity and sinuses Iron deficiency anemia due to chronic blood loss Iron deficiency anemia secondary to blood loss (chronic) Pulsatile tinnitus of left ear documented in this encounter Additional Health Concerns Assessment Noted Time PHQ-9 Depression Total Score: 2 02/19/20 24 9:18 AM EDT documented as of this encounter Care Teams Marine Specialist Relationship Specialty Start Date End Date Harper Chaudhari MD [address] [place] [address] PCP - General Family Medicine 01/31/20 documented as of this encounter
--- OUTSIDE RECORDS SUMMARY | 2024-05-23 19:52 | XMS_ITS | Encounter Summary ---
Author Organization [employer] Address [address] [facility] [address] 7[address] [place] [address] Care Team Providers Care Lathe Hand Name Role Phone Harper Chaudhari MD Primary Care Provider Encounter Details Date Type Department Care Team (Latest Contact Info) Description 05/23/2024 Travel Social History Tobacco Use Types Packs/Day Years [...] documented as of this encounter Care Teams Lathe Hand Relationship Specialty Start Date End Date Harper Chaudhari MD [address] [place] [id number] PCP - General Family Medicine 01/31/20 documented as of this encounter
--- OUTSIDE RECORDS SUMMARY | 2024-05-23 19:52 | XMS_ITS | Encounter Summary ---
Author Organization [employer] Address 75 [facility] 7t [place] [address] Care Team Providers Care Endodontist Name Role Phone Harper Chaudhari MD Primary Care Provider [phone] Reason for Visit * Reason Comments Med Refill Encounter Details Date Type Department Care Team ([facility] st Contact Info) Description 02/11/2024 Refill [facility] CHC MED & PEDS [address] [place], [place] [phone] Simi Najera FNP [address] [place], [place] [phone] Social History Tobacco Use Types Packs/Day Years [...] documented as of this encounter Care Teams Endodontist Relationship Specialty Start Date End Date Harper Chaudhari MD [address] [place] [address] PCP - General Family Medicine 01/31/20 documented as of this encounter
== END 2024-05-23 16:27 | disposition home or self-care (01) ==
LOC: HO.CHCLDS 16:26
PROVIDERS: Visit Provider Internal Medicine
DX: D50.8 Other iron deficiency anemias (principal)
CPT/HCPCS: 36415; 83540; 85025

== ENCOUNTER 2025-02-28 10:18 | Outpatient (REF) | payer MEDICAID, SELFPAY ==
--- OUTSIDE RECORDS SUMMARY | 2025-02-28 12:08 | XMS_ITS | Encounter Summary ---
Author Organization [employer] Address 75 [facility] 7t [place] [address] Care Team Providers Care Protection Manager Name Role Phone Harper Chaudhari MD Primary Care Provider [phone] Danni Valdovinos CNP Primary Care Provider [phone] Reason for Visit * Reason Onset Date Comments Nurse Triage 05/23/2024 Encounter Details Date Type Department Care Team ([facility] st Contact Info) Description 05/23/2024 Telephone [facility] MEDICINE [address] [place] [address] Harper Chaudhari MD [address] [place] [address] Nurse Triage Social History Tobacco Use Types [...] become worse * Telephone Encounter - Lisa Mcdaniels - 05/23/2024 8:43 AM EST Symptoms: Chest [...] documented as of this encounter Care Teams Protection Manager Relationship Specialty Start Date End Date Harper Chaudhari MD [address] [place] [address] PCP - General Family Medicine 01/31/20 02/21/25 Danni Valdovinos CNP [address] [place] [address] PCP - General Family Medicine 02/22/25 documented as of this encounter
--- OUTSIDE RECORDS SUMMARY | 2025-02-28 12:08 | XMS_ITS | Encounter Summary ---
Author Organization [employer] Address 75 [facility] 7t [place] [address] Care Team Providers Care Founder And Chief Executive Officer Name Role Phone Harper Chaudhari MD Primary Care Provider [phone] Danni Valdovinos CNP Primary Care Provider [phone] Encounter Details Date Type Department Care Team (Late st Contact Info) Description 08/04/2024 Orders Only [facility] CHC MED & PEDS [address] [place] [address] ProviderDeanna MD Social History Tobacco Use Types [...] housing situation today? I have bhupindernikolai marley 07/06/[address] you li ve. Do you have problems with any of the following? None of the above 07/06/2024 Food Insecurity Answer Date Recorded Within the past 12 months, y ou worried that your food would run out before you got money to buy more: Never True 07/06/2024 Within the past 12 months,th e food you bought just didn't last and you didn't have enough money to get more: Never True 03/2025 Transportation Answer Date Recorded In the past 12 months, has l ack of transportation kept you from medical appts, meetings, work or from getting things needed for daily living? No 07/06/2024 Utilities Answer Date Recorded In the past 12 months, has t he electric, gas, oil or water company threatened to shut off services in your home? No 07/06/2024 Depression Answer Date Recorded Patient Health Questionnaire-2 Score 1 02/19/2024 Internet Access Answer Date Recorded Internet Access Q1 Yes 07/06/2024 Internet Access Q2 Not on file 07/06/2024 Comments No Sex and Gender Information Value Date Recorded Sex Assigned at Female 02/24/2022 10:19 AM EDT Legal Sex Female 10:19 AM EDT Gender Identity Female 02/24/2022 10:19 AM EDT Sexual Orientation Straight 02/24/2022 10 :19 AM EDT documented as of this encounter Plan of Treatment Not on file documented as of this encounter Procedures Procedure Name Priority Date/Time Associated Diagnosis Comments HM PAP/HPV Routine 12/18/2023 11:32 AM EDT documented in this encounter Results * HM PAP/HPV (12/18/2023 11:32 AM EDT) us Historical Provider HEALTH MAINTENANCE Final Result documented in this encounter Visit Diagnoses Not on filedocumented in this encounter Additional Health Concerns Assessment Noted Time PHQ-9 Depression Total Score: 2 02/19/20 24 9:18 AM EDT documented as of this encounter Care Teams Founder And Chief Executive Officer Relationship Specialty Start Date End Date Harper Chaudhari MD [address] [place] [address] PCP - General Family Medicine 01/31/20 02/21/25 Danni Valdovinos CNP [address] [place] [address] PCP - General Family Medicine 02/22/25 documented as of this encounter
--- OUTSIDE RECORDS SUMMARY | 2025-02-28 12:08 | XMS_ITS | Encounter Summary ---
Author Organization [employer] Address [address] [facility] [address] [place] [address] Care Team Providers Care Herpetologist Name Role Phone Harper Chaudhari MD Primary Care Provider [phone] Danni Valdovinos CNP Primary Care Provider [phone] Encounter Details Date Type Department Care Team (Late st Contact Info) Description 09/08/2023 Orders Only [facility] CHC MED & PEDS [address] [place], [place] [phone] ProviderDeanna MD Social History Tobacco Use Types Packs/Day Years Used Date Smoking Tobacco: Never Passive Smoke Exposure: Never Smokeless Tobacco: Never Alcohol Use Standard Drinks/Week Comments Never 0 (1 standard drink = 0.6 oz pur e alcohol) Depression Answer Date Recorded Patient Health Questionnaire-9 Score 0 09/25/2022 Housing Stability Answer Date Recorded What is your housing situation today? I have bhupindernikolai marely 02/11/[address] you li [...] documented as of this encounter Care Teams Herpetologist Relationship Specialty Start Date End Date Harper Chaudhari MD [address] [place] [address] PCP - General Family Medicine 01/31/20 02/21/25 Danni Valdovinos CNP [address] [place] [address] PCP - General Family Medicine 02/22/25 documented as of this encounter
--- OUTSIDE RECORDS SUMMARY | 2025-02-28 12:08 | XMS_ITS | Encounter Summary ---
Author Organization [employer] Address 75 [facility] 7 [place] [address] Care Team Providers Care Laboratory Technologist Name Role Phone Harper Chaudhari MD Primary Care Provider [phone] Danni Valdovinos CNP Primary Care Provider [phone] Encounter Details Date Type Department Care Team (Latest Contact Info) Description 11/22/2020 Abstract [facility] CONVERSIONS Dental, Provider, DDS Social History Tobacco [...] on filedocumented in this encounter Care Teams Laboratory Technologist Relationship Specialty Start Date End Date Harper Chaudhari MD [address] [place] [address] PCP - General Family Medicine 01/31/20 02/21/25 Danni Valdovinos CNP [address] [place] [address] PCP - General Family Medicine 02/22/25 documented as of this encounter
--- OUTSIDE RECORDS SUMMARY | 2025-02-28 12:08 | XMS_ITS | Encounter Summary ---
Author Organization [employer] Address 75 [facility] 7t [place] [address] Care Team Providers Care Edi Analyst Name Role Phone Harper Chaudhari MD Primary Care Provider [phone] Danni Valdovinos CNP Primary Care Provider [phone] Reason for Visit * Reason Onset Date Comments Results 08/03/2023 Encounter Details Date Type Department Care Team ([facility] Contact Info) Description 08/03/2023 Telephone [facility] MEDICINE [address] [place] [address] Harper Chaudhari MD [address] [place] [address] Results Social History Tobacco Use Types Packs/Day [...] 08/05/2023 11:07 AM EDT Placed call to [facility] regarding message below. Pt had imaging done on 07/23 at [facility]. Informed that ENT Dr Alva ordered imaging. Placed call to pt and informed of need to contact their office. * Telephone Encounter - Michael Valdovinos - 08/03/2023 10:41 AM EDT TC from pt requesting call back regarding Results. Type of results: Imaging Date when done: 07/23 Facility: [facility] Pt is also requesting clarification on text message received stating your healthcare has ordered an imaging for you Please contact pt at [phone]. documented in this encounter Plan of Treatment Not on file documented as of this encounter Visit Diagnoses Not on filedocumented in this encounter Additional Health Concerns Assessment Noted Time PHQ-9 Depression Total Score: 0 09/26/19 23 10:58 AM EDT documented as of this encounter Care Teams Edi Analyst Relationship Specialty Start Date End Date Harper Chaudhari MD [address] [place] [address] PCP - General Family Medicine 01/31/20 02/21/25 Danni Valdovinos CNP [address] [place] [address] PCP - General Family Medicine 02/22/25 documented as of this encounter
--- OUTSIDE RECORDS SUMMARY | 2025-02-28 12:08 | XMS_ITS | Encounter Summary ---
Author Organization [employer] Address [address] [facility] [address] [place] [address] Care Team Providers Care Soda Column Operator Name Role Phone Harper Chaudhari MD Primary Care Provider [phone] Danni Valdovinos CNP Primary Care Provider [phone] Reason for Visit * Reason Comments Med Refill Encounter Details Date Type Department Care Team ([facility] Contact Info) Description 02/11/2024 Refill [facility] [address] [place], [place] [phone] Simi Najera FNP [address] [place] [address] Social History Tobacco Use Types Packs/Day Years [...] documented as of this encounter Care Teams Soda Column Operator Relationship Specialty Start Date End Date Harper Chaudhari MD [address] [place] [address] PCP - General Family Medicine 01/31/20 02/21/25 Danni Valdovinos CNP [address] [place] [address] PCP - General Family Medicine 02/22/25 documented as of this encounter
--- OUTSIDE RECORDS SUMMARY | 2025-02-28 12:08 | XMS_ITS | Clinical Summary ---
Author Organization [employer] Address [address] [facility] [address] [place] [address] Care Team Providers Care Conservation Biology Professor Name Role Phone Danni Valdovinos BARBIE Primary Care Provider [phone] Allergies No known active allergies Medications multivitamin with minerals (Cerovite) 18-400 mg-mcg tablet tablet Take by mouth. 06/03/19 20 Active ferrous gluconate (Fergon) 324 (38 Fe) MG tablet TAKE 1 TABLET BY MOUTH EVERY THURSDAY, THURSDAY AND THURSDAY. TAKE WITH A FULL GLASS OF WATER OR VITAMIN C CONTAINING JUICE AND IDEALLY 1 HOUR BEFORE A MEAL OR 2 HOURS AFTER A MEAL 36 tablet 03/11/20 24 Active sodium chloride (Kidder) 0.65 % nasal sprayIndications: Nasal congestion Administer 1 spray into each nostril if needed for congestion. 15 mL 1 05/23/19 25 2025 Active cyclobenzaprine (Flexeril) 5 MG tablet Take 1 tablet by mouth. 04/10/20 21 2024 Discontinued triamcinolone (Kenalog) 0.1 % creamIndications: Paronychia of finger of right hand Apply topically if needed in the morning and at bedtime (pain and swelling). 30 g 2 04/03/20 22 2024 Discontinued SUMAtriptan (Imitrex) 100 MG tabletIndications :Acute nonintractable headache, unspecified headache type Take 1 tablet at onset of headache. Repeat in 2 hours if headache still present. Do not take more than 2 tablets daily 9 tablet 03/16/20 23 2024 Discontinued meclizine (Antivert) 25 MG tablet 1 tab po BID 60 tablet 3 04/08/20 23 2024 Discontinued Dextromethorphan- guaiFENesin (Mucinex DM) 30-600 MG tablet sustained-release 12 hour Use 1 tab TID 28 tablet 05/01/19 24 2024 Discontinued Active Problems Problem Noted Date Diagnosed Date [...] No complications.Referral to gereral surgery done at [facility] for resection as it is interfering with her job. Encounters Date Type Department Care Team Description 02/08/2025 11:15 AM EDT Office Visit [facility] [address] [place] [address] Harper Chaudhari MD Migraine without status migrainosus, not intractable, unspecified migraine type (Primary Dx); Irregular periods; Encounter for immunization; Tinea pedis of right foot; Encounter for annual wellness visit 02/08/2025 Travel 02/07/2025 Telephone [facility] [address] [place] [address] Harper Chaudhari MD Chart Prep 02/01/2025 Patient Outreach [facility] [address] [place], [place] [phone] Harper Chaudhari MD Pre-visit Planning (SDOH screening completed on 07/06/24/) from Last 3 Months Immunizations Immunization Administration Dates Next Due Tdap 02/08/2025 Social History Tobacco Use Types Packs/Day Years Used Date Smoking Tobacco: Never Passive Smoke Exposure: Never Smokeless Tobacco: Never Tobacco Cessation:Counseling Given: Not Answered Alcohol Use Standard Drinks/Week Comments Never 0 (1 standard drink = 0.6 oz pur e alcohol) Depression Answer Date Recorded Patient Health Questionnaire-9 Score 2 02/08/2025 Patient Health Questionnaire-9 Score 2 02/08/2025 Last PHQ-9: Questionnaire Data Not on file 1 Housing Stability Answer Date Recorded What is your housing situation today? I have bhupinder marley 07/06/[address] you [...] Date Recorded Patient Health Questionnaire-2 Score 0 02/08/2025 Internet Access Answer Date Recorded Internet Access [...] Sign Reading Time Taken Comments Blood Pressure 109/73 02/08/2025 11:25 AM EDT Pulse 74 02/08/2025 11:25 AM EDT Temperature 36.6 C (97.9 F) 02/08/2025 11:25 AM EDT Respiratory Rate 18 02/08/2025 11:25 AM EDT Oxygen Saturation 100% 05/23/2024 3:49 PM EST Inhaled Oxygen Concentration - - Weight 55.8 kg (123 lb) 02/08/2025 11:25 AM EDT Height 145.4 cm (4' 9.25 ) 02/08/2025 11:25 AM E DT Body Mass Index 26.38 02/08/2025 11:25 AM EDT Plan of Treatment Health Maintenance Due Date Last Done Comments Family Planning (PISQ) 2005 Hepatitis B Vaccines (1 of 3 - 19+ 3-dose series) 2009 SDOH Screening 07/06/2025 07/06/2024 Influenza Vaccine (#1) 2025 Postp oned from 12/26/2024 (Patient Refused) Alcohol/Substance Use Screening 02/08/2026 02/08/2025 COVID-19 Vaccine ( - 2023-2 5 season) 2026 Postponed from 12/26 (Patient Refused) Depression Screening 02/08/2026 02/08/2025, 02/08/2025 Disability Screening 02/08/2026 02/08/2025 HPV Vaccines (1 - 3-dose series) 02/08/2026 Postponed from 01/11 (Patient Refused) Tobacco Screening 02/08/2026 02/08/2025 Cervical Cancer Screening 12/17/2028 HPV/Cotest 12/17/2028 Pap Smear 12/17/2028 12/18/2023 DTaP/Tdap/Td Vaccines (2 - T d or Tdap) 02/08/2035 02/08/2025 Zoster Vaccines (1 of 2) 01/12/2040 RSV [...] patient's age to complete this topic Meningococcal B Vaccine Aged Out No l onger eligible based on patient's age to complete this topic Meningococcal Vaccine Aged Out No mi cathy eligible based on patient's age to complete this topic Pneumococcal Vaccine: Pediatrics (0 to 5 Years) and At-Risk Patients (6 to 49) Years Aged Out No longer eligible b ased on patient's age to complete this topic RSV under 20 months Aged Out No longe r eligible based on patient's age to complete this topic Rotavirus Vaccines Aged Out No longer eligible based on patient's age to complete this topic Procedures Procedure Name Priority Date/Time Associated Diagnosis Comments HM PAP/HPV Routine 12/18/2023 11:32 AM EDT [facility] HISTORICAL HEPATITIS C ANTIBODY RFLX Routine 06/03/2019 10:01 AM EST [facility] HISTORICAL HIV AB/AG Routine 06/03/2019 10:01 AM EST from Last 3 Months or Most Recently Relevant to Health Maintenance Results * HM PAP/HPV (12/18/2023 11:32 AM EDT) Historical Provider HEALTH MAINTENANCE Final Result * HEPATITIS C ANTIBODY RFLX (06/03/2019 10:01 AM EST) HEPATITIS C ANTIBODY NONREACTIVE NONREACTIVE [facility] Comment: Antibodies to HCV not detected; does not exclude early acute HCV infection. 06/03/2019 10:0 1 AM EST Historical Provider HISTORICAL/NON ORDERABLE LABS Final Result Performing Organization Address [facility] Phone Number [facility] [address] * HIV AB/AG (06/03/2019 10:01 AM EST) Pathologist [facility] HIV AG/AB NONREACTIVE [facility] Comment: HIV-1 p24 Ag and/or HIV-1/HIV-2 Ab not detected. A test result that is nonreactive does not exclude the possibility of exposure to or infection with HIV-1 and/or HIV-2. Nonreactive results in this assay for individuals with prior exposure to HIV-1 and/or HIV-2 may be due to antigen and antibody levels that are below the limit of detection of this assay. The [employer] Meter Reader Inspector HIV Ag/Ab Combo assay result and supplemental assay results should be interpreted in conjunction with the patient's clinical presentation, history and other laboratory results. If the results are inconsistent with clinical evidence, additional testing is suggested to confirm the result. 06/03/2019 10:0 1 AM EST Historical Provider HISTORICAL/NON ORDERABLE LABS Final Result Performing Organization Address [facility] Phone Number [facility] [address] from Last 3 Months or Most Recently Relevant to Health Maintenance Insurance , [address] [place] [address] [facility] Care Teams Conservation Biology Professor Relationship Specialty Start Date End Date Danni Valdovinos CNP [address] [place] [id number] PCP - General Family Medicine 02/22/25
--- OUTSIDE RECORDS SUMMARY | 2025-02-28 12:08 | XMS_ITS | Encounter Summary ---
Author Organization [employer] Address [address] [facility] [address]t [place] [address] Care Team Providers Care Title I Director Name Role Phone Harper Chaudhari MD Primary Care Provider [phone] Danni Valdovinos CNP Primary Care Provider [phone] Reason for Visit * Reason Onset Date Comments Nurse Triage 04/30/2023 Encounter Details Date Type Department Care Team ([facility] st Contact Info) Description 04/30/2023 Telephone [facility] & PEDS [address] [place], [place] [phone] Harper Chaudhari MD [address] [place] [address] Nurse Triage Social History Tobacco Use Types [...] regarding rx for Mucinex not received by [facility]. Per Epic rx confirmed as received on 04/30/23 at 9:22am. Call to [facility]. Pharmacists states that Rx not received. Requesting [...] documented as of this encounter Care Teams Title I Director Relationship Specialty Start Date End Date Harper Chaudhari MD [address] [place] [id number] PCP - General Family Medicine 01/31/20 02/21/25 Danni Valdovinos CNP [address] [place] [address] PCP - General Family Medicine 02/22/25 documented as of this encounter
--- OUTSIDE RECORDS SUMMARY | 2025-02-28 12:08 | XMS_ITS | Encounter Summary ---
Author Organization [employer] Address [address] [facility] [address]t [place] [address] Care Team Providers Care Semiconductor Wafers Tester Name Role Phone Harper Chaudhari MD Primary Care Provider [phone] Danni Valdovinos CNP Primary Care Provider [phone] Reason for Visit * Reason Onset Date Comments Medication Question 04/30/2023 Encounter Details Date Type Department Care Team ([facility] st Contact Info) Description 04/30/2023 Telephone [facility] PEDS [address] [place], [place] [phone] Harper Chaudhari MD [address] [place] [address] Medication Question Social History Tobacco Use Types [...] sustained-release 12 hour to be re sent. [facility] pharmacy never received script. documented in this encounter Plan of Treatment Not on file documented as of this encounter Visit Diagnoses Not on filedocumented in this encounter Additional Health Concerns Assessment Noted Time PHQ-9 Depression Total Score: 0 09/26/19 23 10:58 AM EDT documented as of this encounter Care Teams Semiconductor Wafers Tester Relationship Specialty Start Date End Date Harper Chaudhari MD [address] [place] [address] PCP - General Family Medicine 01/31/20 02/21/25 Danni Valdovinos CNP [address] [place] [address] PCP - General Family Medicine 02/22/25 documented as of this encounter
[2025-02-28 14:56] LABS: Alanine Aminotransferase 14 U/L (0-31); Albumin Level 5.0 g/dL (3.5-5.0); Alkaline Phosphatase 67 U/L (39-117); Anion Gap 9 (12-20); Aspartate Amino Transferase 26 U/L (5-31); Blood Urea Nitrogen 16 mg/dL (9-16); Calcium 9.3 mg/dL (8.4-10.2); Carbon Dioxide 26 mmol/L (22-29); Chloride 105 mmol/L (96-108); Cholesterol 182 mg/dL (<200); Estimated Glomerular Filt Rate > 60; HDL Cholesterol 69 mg/dL (>40); Potassium 3.8 mmol/L (3.3-5.1); Sodium 136 mmol/L (135-145); Total Protein 7.8 g/dL (6.5-8.0); Triglycerides 72 mg/dL (<150)
== END 2025-02-28 10:19 | disposition home or self-care (01) ==
LOC: HO.CHCLDS 10:18
PROVIDERS: Visit Provider Student in an Organized Health Care Education/Training Program
DX: N92.6 Irregular menstruation, unspecified (principal)
CPT/HCPCS: 36415; 80048; 80061; 80076